=== PATIENT | male | born 1965 | race Caucasian/White ===

== ENCOUNTER → 2017-11-09 | Outpatient (CLI) | payer OTHER ==
--- NOTE | 2017-11-09 14:05 | 2DMMODE ---
[place] [address] 2 D/M-MODE ECHOCARDIOGRAM Name: [facility] Room: [facility]#: [id number] Admission: 11/09/17 Attend Phys: Anthony Ochoa Discharge: Date of : 69 Date of Service: 11/09/17 1405 Report #: [id number] THIS REPORT FOR: //name// APPROVED REPORT Study performed: 11/09/2017 08:23:04 EXAM: Comprehensive 2D, Doppler, and color-flow Echocardiogram Patient Location: Out-Patient Status: routine BSA: 2.18 HR: 58 bpm BP: 112/70 mmHg Other Information Study Quality: Good Indications Murmur 2D Dimensions LVEF(%): 66.85 (>50%) IVSd: 11.29 (7-11mm) LVOT Diam: 21.15 (18-24mm) LVDd: 54.06 mm PWd: 10.67 (7-11mm) Ascending Ao: 36.91 (22-36mm) LVDs: 33.86 (25-40mm) Aortic Root: 35.99 mm Valdez's LVEF: 66.85 % Volumes Left Atrial Volume (Systole) LA ESV Index: 18.90 mL/m2 Aortic Valve AoV Peak Nicho.: 1.69 m/s AO Peak Gr.: 11.49 mmHg LVOT Max P.66 mmHg AO Mean Gr.: 4.75 mmHg LVOT Mean P.10 mmHg LVOT Max V: 1.08 m/s AO V2 VTI: 29.09 cm LVOT Mean V: 0.66 m/s RADHA (VTI): 2.87 cm2 LVOT V1 VTI: 23.72 cm AI [place]: 2.43 m/s2 AI PHT: 514.34 [place] [address] 2 D/M-MODE ECHOCARDIOGRAM Name: [facility] Room: [facility]#: [id number] Admission: 11/09/17 Attend Phys: Anthony Ochoa Discharge: Date of : 69 Date of Service: 11/09/17 1405 Report #: [id number] E/A Ratio: 0.92 MV Decel. Time: 308.72 ms MV E Max Nicho.: 0.64 m/s MV PHT: 89.53 ms MVA (PHT): 2.46 cm2 TDI E/Lateral E': 4.92 E/Medial E': 8.00 Medial E' Nicho.: 0.08 m/s Lateral E' Nicho.: 0.13 m/s Pulmonary Valve PV Peak Nicho.: 1.09 m/s PV Peak Gr.: 4.77 mmHg Tricuspid Valve TR Peak Gr.: 20.23 mmHg RVSP: 25.23 mmHg Left Ventricle The left ventricle is normal size. There is normal LV segmental wall motion. There is normal left ventricular wall thickness. Left ventricular systolic function is normal. The left ventricular ejection fraction is within the normal range. LVEF is 55-60%. Grade I - abnormal relaxation pattern. Right Ventricle The right ventricle is normal size. The right ventricular systolic function is normal. Atria The left atrium size is normal. The right atrium size is normal. Aortic Valve The aortic valve is normal in structure. Mild to moderate aortic regurgitation. There is no aortic valvular stenosis. Mitral Valve The mitral valve is normal in structure. Trace mitral regurgitation. No evidence of mitral valve stenosis. Tricuspid Valve The tricuspid valve is normal in structure. Trace to mild tricuspid regurgitation. The RVSP is __25.2 mmHg. Pulmonic Valve The pulmonary valve is normal in structure. [place] [address] 2 D/M-MODE ECHOCARDIOGRAM Name: [facility] Room: [facility]#: [id number] Admission: 11/09/17 Attend Phys: Anthony Ochoa Discharge: Date of : 69 Date of Service: 11/09/17 1405 Report #: [id number] regurgitation. Great Vessels The aortic root is normal in size. IVC is normal in size and collapses with >50% inspiration Pericardium There is no pericardial effusion. <Conclusion> LVEF is 55-60%. Mild to moderate aortic regurgitation. <ELECTRONICALLY SIGNED> By: Anton Novoa MD, FACC 11/09/17 1405 04 140 Anton Novoa MD, FACC /INF
== END ==
LOC: M.CRD 08:00
DX: R10.11 Right upper quadrant pain (principal); F17.290 Nicotine dependence, other tobacco product, uncomplicated

== ENCOUNTER 2021-06-27 19:18 | Emergency (ER) | payer OTHER ==
[~2021-06-27] VITALS: Ht 188 cm; Wt 90.7 kg
[2021-06-27 19:27] VITALS: BP 126/81
== END 2021-06-27 22:58 | disposition home or self-care (01) ==
LOC: M.ERS 19:18
DX: S30.850A Superficial foreign body of lower back and pelvis, initial encounter (principal); F17.210 Nicotine dependence, cigarettes, uncomplicated; Z98.890 Other specified postprocedural states; Z88.0 Allergy status to penicillin; X58.XXXA Exposure to other specified factors, initial encounter; Y93.89 Activity, other specified; Y92.89 Other specified places as the place of occurrence of the external cause; Y99.8 Other external cause status